=== PATIENT | female | born 1990 | race Caucasian/White ===

== ENCOUNTER 2017-08-30 09:56 | Emergency (ER) | payer OTHER, MEDICAID ==
[2017-08-30 10:08] VITALS: TEMP 98.2
--- NOTE | 2017-08-30 12:31 | CPEKG ---
Heart Rate: 75 RR Interval: 800 P-R Interval: 152 QRSD Interval: 76 QT Interval: 412 QTC Interval: 461 P [place]: 35 QRS [place]: 19 T Wave [place]: 15 EKG Severity - NORMAL ECG - EKG Impression: SINUS RHYTHM Electronically Signed By: Rosy Yanez 30-Aug-2017 15:05:56
[2017-08-30 12:42] LABS: PLATELET COUNT 279 10^3/uL (150-400)
[2017-08-30 12:43] VITALS: RESP 16
--- NOTE | 2017-08-30 13:08 | EDPHY ---
H & P Stated Complaint: dancing yesterday inj l knee/today had increased pain/episode of staring/no HPI/ROS: Chief complaint: Left knee injury History of present illness: This is a 27-year-old developmentally delayed female who is brought to the emergency department by her mother. The patient was dancing yesterday when she twisted her knee. Since then she has had pain in her knee. It hurts to move it. It makes it difficult to ambulate. She denies other associated signs or symptoms with this including no report of open wounds, no abnormal coolness or paresthesias in the leg. No report of pain or trauma to other parts of the body. In addition, mother is reporting patient is having these "episodes" where she will stare off into space. These have been going on for a number of years but she has had 2 in the last few months. She has seen primary care doctor about them before but no significant findings have been noted. She states patient will to stay off and space, occasionally slumped down. They have lasted for few minutes and then resolved. She has seen a primary care doctor for them but is not clear as to the cause of these episodes. Again that been occurring for few years last episode was a few weeks ago. At this time patient is asymptomatic. Review of systems: A 10 point review of systems was obtained and other than described above was negative - Personal History LMP (Females 10-55): 1-7 Days Ago Current Tetanus/Diphtheria Vaccine: No - Medical/Surgical History Hx Asthma: No Hx Chronic Respiratory Disease: No Hx Diabetes: No Hx Cardiac Disease: No Hx Renal Disease: No Hx Cirrhosis: No Hx Alcoholism: No Hx HIV/AIDS: No Hx Splenectomy or Spleen Trauma: No Other PMH: l foot fx - Social History Smoking Status: Never smoked - Physical Exam Exam: General Appearance: Alert, no distress. Eyes: Pupils equal and round no pallor or injection. ENT, Mouth: Mucous membranes moist. Respiratory: There are no retractions, lungs are clear to auscultation. Cardiovascular: Regular rate and rhythm. DP and PT pulses 2+. Gastrointestinal: Abdomen is soft and non tender, no masses, bowel sounds normal. Neurological: Alert. Strength and sensation intact and symmetrical. Skin: Warm and dry, no rashes. Musculoskeletal: Neck is supple non tender. Left knee is tender to palpation anteriorly. It hurts to flex and extend it. The rest the leg is unremarkable. Psychiatric: Patient is alert. She is able to converse with me. No agitation. Constitutional: Initial Vital Signs Temperature (C) 36.8 C 08/30/17 10:04 Heart Rate 70 08/30/17 10:04 Respiratory Rate 17 08/30/17 10:04 Blood Pressure 118/71 08/30/17 10:04 O2 Sat (%) 98 08/30/17 10:04 O2 Delivery Mode Room Air Allergies/Adverse Reactions: No Known Allergies Allergy (Unverified 08/30/17 10:04) Home Medications: Medication Instructions Recorded ARMOUR THYROID 08/30/17 Medical Decision Making - Diagnostics Imaging: I viewed and interpreted images myself Procedures: Procedure: Splint placement. A Velcro knee immobilizing splint was applied. After application of the splint I returned and re-examined the patient. The splint was adequately immobilizing the joint and distal to the splint the patient's circulation and sensation was intact. Patient was given a walker and she does not do well with crutches ED Course/Re-evaluation: Patient is discussed with my primary supervising physician Dr. Rosy Burt. Patient presents to the emergency department with her mother primarily for left knee injury. She does appear to have a patellar fracture. Her leg is neurovascularly intact. She is placed in a knee immobilizer and given a walker she does not do well with crutches. She is referred to Orthopedics. However mother also describes episodes of staring off in space. It sounds like this is been going on for number of years. She is currently at baseline. Basic blood studies and EKG are obtained and unremarkable. She has a nonfocal neurologic exam I do not believe imaging studies are warranted at this time. She will follow up with her primary care doctor for further evaluation care of this. She has also been given referral information to Neurology. Differential Diagnosis: Included but not limited to contusion, sprain or strain, meniscal injury, bony fracture of the knee as well as seizure activity, syncopal episodes, of multiple etiologies, cardiac dysrhythmias, infections, electrolyte disturbances - Data Points Laboratory Results: Laboratory Results 08/30/17 12:31 08/30/17 12:31 Departure - Departure Disposition: Home, Routine, Self-Care Clinical Impression: Confusion Patellar fracture Qualifiers: Encounter type: initial encounter Fracture type: closed Fracture morphology: unspecified fracture morphology Fracture alignment: nondisplaced Laterality: left Qualified Code(s): S82.002A - Unspecified fracture of left patella, initial encounter for closed fracture Condition: Good Instructions: Patellar Fracture (ED) Additional Instructions: Follow-up with patient's primary care doctor as arranged Follow-up with Orthopedics and Neurology for continued evaluation and care If symptoms worsen or new symptoms develop return to the emergency room for recheck Referrals: NONE *PRIMARY CARE P,. [Primary Care Provider] - As per Instructions Jose E Hanna MD [Medical Doctor] - As per Instructions Jose L Barclay MD [Medical Doctor] - As per Instructions
[2017-08-30 13:57] VITALS: BP 114/77; PULSE 67; O2SAT 99
== END 2017-08-30 13:57 | disposition home or self-care (01) ==
DX: S82.002A Unspecified fracture of left patella, initial encounter for closed fracture (principal); R41.0 Disorientation, unspecified; X50.9XXA Other and unspecified overexertion or strenuous movements or postures, initial encounter; Y93.41 Activity, dancing

== ENCOUNTER → 2017-09-12 | Outpatient (CLI) | payer OTHER, MEDICAID | LOC: FIMAGING 07:59 | PROVIDERS: ATTEND Orthopaedic Surgery | DX: S82.002D Unspecified fracture of left patella, subsequent encounter for closed fracture with routine healing (principal); S83.005S Unspecified dislocation of left patella, sequela ==

== ENCOUNTER → 2017-09-14 | Outpatient (CLI) | payer OTHER, MEDICAID | LOC: FIMAGING 11:44 | PROVIDERS: ATTEND Psychiatry & Neurology Neurology | DX: R55 Syncope and collapse (principal); R56.9 Unspecified convulsions ==

== ENCOUNTER → 2017-09-16 | Outpatient (CLI) | payer OTHER, MEDICAID | LOC: BHFA 10:00 | PROVIDERS: ATTEND Internal Medicine Cardiovascular Disease | DX: R55 Syncope and collapse (principal) ==

== ENCOUNTER 2017-09-24 10:58 | Day surgery (SDC) | payer OTHER, MEDICAID ==
[~2017-09-24 10:58] MED LIST: EPINEPHRINE IU ONE; MORPHINE IU ONE; ROPIVACAINE IU ONE
[2017-09-24] MEDS ORDERED: ceFAZolin 2 GM/SWFI 2 GM/20 ML SYR IVP ONE (11:48)
[2017-09-24] MEDS ORDERED: LR 1,000 ML IV SCH (11:48)
[2017-09-24] MEDS ORDERED: PREGABALIN 75 MG CAP PO ONE (11:48)
[2017-09-24] MEDS ORDERED: LR 1,000 ML IV ONE (11:49)
[2017-09-24] MEDS ORDERED: LIDOCAINE 1% 2 ML INJ ID PRN (11:49)
[2017-09-24 11:58] VITALS: PULSE 79
[2017-09-24] MEDS ORDERED: ceFAZolin 2 GM/SWFI 20 ML SYR IVP ONE ×2 (12:08→13:28)
--- NOTE | 2017-09-24 13:18 | PDHPUP ---
History & Physical Update H&P update statement: This history and physical update is based on an assessment of the patient which was completed after admission or registration (within 24 hours), but prior to the surgery/procedure. H&P update: H&P reviewed & patient examined, no change in patient's condition since H&P completed
[2017-09-24] MEDS ORDERED: MIDAZOLAM 2 MG/2 ML VIAL IVP ONE (13:20)
--- NOTE | 2017-09-24 13:24 | PDANEPAE ---
ANE Past Medical History - Cardiovascular History Hx Hypertension: No Hx Arrhythmias: No Hx Chest Pain: No Hx Coronary Artery / Peripheral Vascular Disease: No Hx CHF / Valvular Disease: No Hx Palpitations: No - Pulmonary History Hx COPD: No Hx Asthma/Reactive Airway Disease: No Hx Recent Upper Respiratory Infection: No Hx Oxygen in Use at Home: No Hx Sleep Apnea: No Sleep Apnea Screening Result - Last Documented: Negative - Neurologic History Hx Cerebrovascular Accident: No Hx Seizures: No Hx Dementia: No - Endocrine History Hx Diabetes: No - Renal History Hx Renal Disorders: No - Liver History Hx Hepatic Disorders: No - Neurological & Psychiatric Hx Hx Neurological and Psychiatric Disorders: No - Cancer History Hx Cancer: No - Congenital Disorder History Hx Congenital Disorders: Yes Congenital History Comment: downs sydrome - GI History Hx Gastrointestinal Disorders: No - Other Health History Other Health History: missing teeth on top - Chronic Pain History Chronic Pain: No - Surgical History Prior Surgeries: oral surgery ANE Review of Systems Review of Systems: - Exercise capacity METS (RN): 5 METS - Systems Cardiac: Reports: no symptoms (Normal cardiac structure confirmed in childhood, according to mother.) Neurological: Reports: no symptoms (Participated in [employer] age 18; normal atlanto-axial studies prior.) ANE Patient History - Allergies Allergies/Adverse Reactions: No Known Allergies Allergy (Verified 09/22/17 16:21) - Home Medications Home medications: home medication list seen and reviewed Home Medications: ARMOUR THYROID 08/30/17 [Last Taken Unknown] - NPO status NPO Since - Liquids (Date): 09/23/17 NPO Since - Liquids (Time): 23:55 NPO Since - Solids (Date): 09/23/17 NPO Since - Solids (Time): 23:55 - Anes Hx Anes Hx: no prior problems - Smoking Hx Smoking Status: Never smoked - Family Anes Hx Family Hx Anesthesia Complications: none ANE Labs/Vital Signs - Vital Signs Blood Pressure: 115/68 Heart Rate: 79 Respiratory Rate: 16 O2 Sat (%): 94 Height: 149.86 cm Weight: 63.503 kg ANE Physical Exam - Airway Neck exam: FROM Mallampati Score: Class 3 Mouth exam: dentures - Pulmonary Pulmonary: no respiratory distress, no rales or rhonchi, clear to auscultation - Cardiovascular Cardiovascular: regular rate and rhythym, no murmur, rub, or gallop - ASA Status ASA Status: III ANE Anesthesia Plan Anesthesia Plan: GA with mask
[2017-09-24] MEDS ORDERED: fentaNYL 100 MCG/2 ML INJ IVP PRN (13:25)
[2017-09-24] MEDS ORDERED: PROMETHAZINE HCL 25 MG/ML INJ IVP PRN (13:25)
[2017-09-24] MEDS ORDERED: NALOXONE HCL 0.4 MG/ML INJ IVP PRN (13:25)
[2017-09-24] MEDS ORDERED: ACETAMINOPHEN 500 MG TAB PO PRN (13:25)
[2017-09-24] MEDS ORDERED: HYDROCODONE/APAP 5/325 TAB PO PRN (13:25)
[2017-09-24] MEDS ORDERED: LR 500 ML IV PRN (13:25)
[2017-09-24] MEDS ORDERED: ONDANSETRON 4 MG/2 ML VIAL IVP PRN (13:25)
[2017-09-24] MEDS ORDERED: MEPERIDINE 25 MG/ML SYR IVP PRN (13:25)
[2017-09-24] MEDS ORDERED: DEXAMETHASONE 4 MG/ML VIAL ONE (13:34)
[2017-09-24] MEDS ORDERED: PROPOFOL 200 MG/20 ML VIAL ONE (13:34)
[2017-09-24] MEDS ORDERED: fentaNYL 100 MCG/2 ML INJ ONE ×2 (13:34→15:30)
[2017-09-24] MEDS ORDERED: ONDANSETRON 4 MG/2 ML VIAL ONE (13:34)
[2017-09-24] MEDS ORDERED: LIDOCAINE 2% 5 ML SDV ONE (13:34)
[2017-09-24] MEDS ORDERED: BUPIVACAINE/EPI 0.5% 30 ML SDV ONE (13:34)
--- NOTE | 2017-09-24 15:12 | POSTANESTH ---
Post Anesthetic Evaluation Cardiovascular Status: Normal, Stable, Similar to Pre-Op Cond Respiratory Status: Normal, Stable, Similar to Pre-op Cond. Level of Consciousness/Mental Status: Can Participate in Eval, Alert and Oriented Pain Control: Adequate, Prn Tx Ordered Nausea/Vomiting Control: Adequate, Prn Tx Ordered Complications Possibly Related to Anesthesia: None Noted
--- NOTE | 2017-09-24 15:30 | POSTOPPROG ---
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
[2017-09-24 15:39] VITALS: TEMP 97.9
[2017-09-24 15:54] VITALS: RESP 21; O2SAT 98
[2017-09-24 15:55] VITALS: BP 109/71
--- NOTE | 2017-09-25 03:29 | GOP ---
[f rep st] OPERATIVE REPORT DATE OF OPERATION: 09/24/2017 SURGEON: Jose E Hanna MD ANESTHESIA: IV sedation. PREOPERATIVE DIAGNOSIS: Right hip patellar dislocation with intra-articular loose body. POSTOPERATIVE DIAGNOSIS: Right hip patellar dislocation with intra-articular loose body with a large patellar medial facet osteochondral defect. PROCEDURE PERFORMED: FINDINGS: SPECIMENS: None. ESTIMATED BLOOD LOSS: Minimal. DESCRIPTION OF PROCEDURE: Patient was seen in the holding area. Operative consent was signed. Fina ent's left lower extremity was identified and marked. The patient was then taken the operating room and after smooth induction of general anesthesia, patient placed in supine position on the operating table, and a nonsterile tourniquet was placed on the upper thigh. The operative site was confirmed b y signature. Operative timeout performed. Allergies reviewed. Antibiotics administered. 0.5% Marcaine without epinephrine was administered into the portal sites. The left lower extremity w as then exsanguinated with an Esmarch bandage. An 11 blade was used to establish a horizontal infero lateral parapatellar portal. Arthroscope was introduced into the notch and suprapatellar pouch. Pamela or to introduction of the arthroscope, a large hemarthrosis was evacuated from the joint. The arthro scope was then introduced into the suprapatellar pouch. The medial facet defect on the patella was immediately identified, as well as the large loose body in the suprapatellar recess. There was significant synovitis throughout all 3 compartments of the knee with hemosiderin deposition. The medial and lateral gutters were examined for additional loose bodi es. Diagnostic arthroscopy was performed. Medial meniscus, ACL, PCL, and lateral meniscus were all intact. There were no other cartilage defects about the knee. The loose body was then obtained with an arthroscopic grasper from the suprapatellar recess and removed. A thorough synovectomy was perfo rmed throughout the knee. The loose body measured approximately 2.5 x 1.5 cm. The knee joint was then thoroughly drained of all arthroscopic fluid. Joint cocktail was then admini stered intra-articularly. The portal sites were closed with 3-0 Monocryl, Dermabond, Steri-Strips. Dressings consisted of 4 x 4's, Webril, and Celio wrap. The tourniquet was taken down at 38 minutes. The patient was then safely awakened and taken to recovery room in stable condition. All critical po rtions of the procedure were performed by myself, Dr. Hanna. This operative note was created by Dr. Cyndi israel. I was immediately available for emergency cross-coverage at all times. DRAINS: None. COMPLICATIONS: None. IMPLANTS: None. INDICATION FOR PROCEDURE: Patient was dancing and injured her right knee atraumatically. MRI reveal ed a large intra-articular loose body as a sequelae of patellar dislocation. To minimize continued m echanical symptoms in the knee, we recommended loose body removal. After the discussion of all possi ble risks and benefits, pros, cons, expected recovery and prognosis, patient and parents elected to p roceed and signed the informed consent prior to procedure. /[id number]/MODL
== END 2017-09-24 16:11 | disposition home or self-care (01) ==
LOC: FSGY 10:58
PROVIDERS: ATTEND Orthopaedic Surgery
PROC: 0SBD4ZZ Excision of Left Knee Joint, Percutaneous Endoscopic Approach (ICD-10-PCS; principal; 2017-09-24 10:15)
DX: M23.42 Loose body in knee, left knee (principal); M25.362 Other instability, left knee; R55 Syncope and collapse; Q90.9 Down syndrome, unspecified
CPT/HCPCS: J0171; J0690; J1100; J2250; J2405; J2704; J2795; J3010

== ENCOUNTER → 2017-10-02 | Outpatient (CLI) | payer OTHER, MEDICAID ==
--- NOTE | 2017-10-05 11:15 | CPEEG ---
[f rep st] ELECTROENCEPHALOGRAM 4-HOUR VIDEO EEG DATES OF STUDY: 10/02/2017. DATE OF INTERPRETATION: 10/05/2017. INTERPRETATION: This 4-hour video EEG recording was normal. There were no potentially epileptogenic abnormalities present during the recording. During the video EEG monitoring session, the patient did not have any clinical events. REPORT: This 4-hour video EEG contained 9-10 Hz alpha to the posterior head regions. There was no abnormal activation at rest, during photic stimulation or hyperventilation. The patient became drowsy and fell into sustained sleep during the study. There was no abnormal activation during drowsiness, sleep or during times of arousal. There were no clinical events recorded during the video EEG monitoring session. /[id number]/MODL MTDD
== END ==
LOC: FCPNEURO 08:01
PROVIDERS: ATTEND Psychiatry & Neurology Neurology
DX: R55 Syncope and collapse (principal); R56.9 Unspecified convulsions